=== PATIENT | female | born 1980 | race Caucasian/White ===

== ENCOUNTER → 2017-07-21 | Outpatient (CLI) | payer OTHER ==
[~2017-07-21] MED LIST: ATOR10 PO; Apidra100 UNIT/2 XX; CYAN500; DEPLIN-ALGAL O1 EAC1; HYDPAM25 PO; INSULIN PUMP; LISI5; LOSA25 PO; Therapeutic M1 EAC5 PO; VIIBRYD40 MG PO; VITAMIN D PO; Verotin-Gr Cap1 EACH; Zofran Odt4 MG SL
[2017-07-23 11:21] LABS: HPV Genotype 16 Not Detected (NOTDET); HPV Genotype 18 Not Detected (NOTDET)
[2017-07-31 10:13] LABS: HPV High Risk Other Not Detected (NOTDET)
== END | disposition home or self-care (01) ==
LOC: LAB 11:20
PROVIDERS: Obstetrics & Gynecology
DX: Z01.419 Encounter for gynecological examination (general) (routine) without abnormal findings (principal)
CPT/HCPCS: 87624; G0123

== ENCOUNTER → 2020-04-26 | Outpatient (CLI) | payer OTHER | LOC: LAB 10:39 → PLD 10:39 → LAB SHORT 10:39 | DX: D22.61 Melanocytic nevi of right upper limb, including shoulder (principal) | CPT/HCPCS: 88305 ==

== ENCOUNTER → 2021-05-02 | Outpatient (CLI) | payer OTHER | LOC: LAB 11:14 → LAB SHORT 11:14 | DX: D48.5 Neoplasm of uncertain behavior of skin (principal); D22.61 Melanocytic nevi of right upper limb, including shoulder; D22.5 Melanocytic nevi of trunk | CPT/HCPCS: 88305 ==